=== PATIENT | female | born 1965 | race Caucasian/White ===

== ENCOUNTER 2016-10-25 21:18 | Observation (INO) | payer OTHER ==
[~2016-10-25] VITALS: Ht 165.1 cm; Wt 60.0 kg
[~2016-10-25 21:18] MED LIST: CLON1TAB PO; HYDR-3533 PO; IMIP25TA PO; METO50TA PO
[2016-10-25 21:20] VITALS: BP 146/87; PULSE 92; RESP 16; TEMP 98; O2SAT 97
[2016-10-25] MEDS ORDERED: ASPIRIN 325 MG TAB PO ONE (21:45)
--- NOTE | 2016-10-25 21:45 | PD ---
HPI Chief Complaint: Cardiac Complaint Time Seen by Provider: 21:30 Travel History International Travel<30 days: No Contact w/Intl Traveler<30days: No Traveled to known affect area: No History of Present Illness HPI 51-year-old female complains of chest pain. Patient states that she has intermittent chest pain for the past 5 years. Patient was seen by physician in the past for chest pain. Patient states that she has stress test done year ago and was normal. Patient has history of bradycardia. Patient was on digoxin in the past however that was stopped after she had bradycardia. Patient's on metoprolol, imipramine and clonazepam. Patient states that the pain is sharp stabbing pain localized to left chest. Patient states that the pain started as tightness in her left chest this evening. Patient denies any pain radiation. Patient denies palpitation nausea diaphoresis. Patient denies any coughing congestion fever chills. Patient states that she has tingling sensation on the left arm. Patient denies any history hypertension, diabetes, dyslipidemia. Patient is a smoker. Patient has family history of heart disease. PFSH Past Medical History Depression: Yes Heart Rhythm Problems: Yes (SVT) Cardiovascular Problems: Yes Diminished Hearing: No Herniated Disk: Yes (neck and lower back per pt. 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.) Immunizations Current: Yes Menopausal: No : 4 Para: 3 Miscarriage: 1 : 0 Ovarian Cysts: Yes Tubal Ligation: Yes Past Surgical History Section: No Cholecystectomy: Yes Gynecologic Surgery: Yes (oopherectomy, unsure of the side.) Social History Alcohol Use: No Tobacco Use: Yes Substance Use: No Allergies-Medications (Allergen,Severity, Reaction): Coded Allergies: No Known Allergies (Unverified , 10/25/16) Reported Meds & Prescriptions Reported Meds & Active Scripts Active Reported Imipramine HCL (Imipramine HCl) 25 Mg Tab 25 Mg PO TID Metoprolol Tartrate 50 Mg Tab 50 Mg PO DAILY Clonazepam 1 Mg Tab 1 Mg PO Q4-6H Review of Systems General / Constitutional: No: Fever Eyes: No: Visual changes HENT: No: Headaches Cardiovascular: Positive: Chest Pain or Discomfort Respiratory: No: Shortness of Breath Gastrointestinal: No: Abdominal Pain Genitourinary: No: Dysuria Musculoskeletal: No: Pain Skin: No Rash Neurologic: No: Weakness Psychiatric: No: Depression Endocrine: No: Polydipsia Hematologic/Lymphatic: No: Easy Bruising Physical Exam Narrative GENERAL: Well-nourished, well-developed patient. SKIN: Focused skin assessment warm/dry. HEAD: Normocephalic. EYES: No scleral icterus. No injection or drainage. NECK: Supple, trachea midline. No JVD or lymphadenopathy. CARDIOVASCULAR: Regular rate and rhythm without murmurs, gallops, or rubs. RESPIRATORY: Breath sounds equal bilaterally. No accessory muscle use. GASTROINTESTINAL: Abdomen soft, non-tender, nondistended. MUSCULOSKELETAL: No cyanosis, or edema. BACK: Nontender without obvious deformity. No CVA tenderness. Neurologic exam normal. Data Data Last Documented VS Vital Signs Date Time Temp Pulse Resp B/P Pulse Ox O2 Delivery O2 Flow Rate FiO2 10/25/16 21:50 18 100 10/25/16 21:50 90 10/25/16 21:20 98.0 146/87 Orders Electrocardiogram (10/25/16 21:37) Complete Blood Count With Diff (10/25/16 21:37) Comprehensive Metabolic Panel (10/25/16 21:37) Creatine Kinase (Cpk) (10/25/16 21:37) Troponin I (10/25/16 21:37) Prothrombin Time / Inr (Pt) (10/25/16 21:37) Act Partial Throm Time (Ptt) (10/25/16 21:37) Urinalysis - C+S If Indicated (10/25/16 21:37) D-Dimer (10/25/16 21:37) Chest, Single Ap (10/25/16 21:37) Iv Access Insert/Monitor (10/25/16 21:37) Ecg Monitoring (10/25/16 21:37) Oximetry (10/25/16 21:37) Aspirin (Aspirin) (10/25/16 21:45) Labs Laboratory Tests Test 10/25/16 10/25/16 21:46 21:57 White Blood Count 10.7 TH/MM3 Red Blood Count 4.95 MIL/MM3 Hemoglobin 14.1 GM/DL Hematocrit 42.0 % Mean Corpuscular Volume 84.8 FL Mean Corpuscular Hemoglobin 28.5 PG Mean Corpuscular Hemoglobin 33.6 % Concent Red Cell Distribution Width 13.6 % Platelet Count 282 TH/MM3 Mean Platelet Volume 8.3 FL Neutrophils (%) (Auto) 60.0 % Lymphocytes (%) (Auto) 30.3 % Monocytes (%) (Auto) 7.6 % Eosinophils (%) (Auto) 1.6 % Basophils (%) (Auto) 0.5 % Neutrophils # (Auto) 6.4 TH/MM3 Lymphocytes # (Auto) 3.2 TH/MM3 Monocytes # (Auto) 0.8 TH/MM3 Eosinophils # (Auto) 0.2 TH/MM3 Basophils # (Auto) 0.1 TH/MM3 CBC Comment DIFF FINAL Differential Comment Prothrombin Time 10.9 SEC Prothromb Time International 1.0 RATIO Ratio Activated Partial 29.1 SEC Thromboplast Time D-Dimer Quantitative (PE/DVT) 0.20 MG/L FEU Sodium Level 133 MEQ/L Potassium Level 3.8 MEQ/L Chloride Level 97 MEQ/L Carbon Dioxide Level 28.7 MEQ/L Anion Gap 7 MEQ/L Blood Urea Nitrogen 8 MG/DL Creatinine 0.96 MG/DL Estimat Glomerular Filtration 62 ML/MIN Rate Random Glucose 86 MG/DL Calcium Level 9.3 MG/DL Total Bilirubin 0.4 MG/DL Aspartate Amino Transf 18 U/L (AST/SGOT) Alanine Aminotransferase 30 U/L (ALT/SGPT) Alkaline Phosphatase 66 U/L Total Creatine Kinase 87 U/L Troponin I LESS THAN 0.02 NG/ML Total Protein 7.6 GM/DL Albumin 4.4 GM/DL Urine Color LIGHT-YELLOW Urine Turbidity CLEAR Urine pH 7.5 Urine Specific Kennan 1.003 Urine Protein NEG mg/dL Urine Glucose (UA) NEG mg/dL Urine Ketones NEG mg/dL Urine Occult Blood TRACE Urine Nitrite NEG Urine Bilirubin NEG Urine Urobilinogen LESS THAN 2.0 MG/DL Urine Leukocyte Esterase NEG Urine RBC 1 /hpf Urine WBC 1 /hpf Urine Squamous Epithelial <1 /hpf Cells Urine Bacteria FEW /hpf Microscopic Urinalysis Comment CULT NOT INDICATED MDM Medical Decision Making Medical Screen Exam Complete: Yes Emergency Medical Condition: Yes Interpretation(s) 23:37 PM. EKG shows sinus rhythm with incomplete right bundle-branch block. Nonspecific ST-T wave change. Last Impressions Chest X-Ray 10/25/16 [id number] Signed Impressions: Service Date/Time: Tuesday, October 25, 2016 21:56 - CONCLUSION: No evidence of acute cardiopulmonary disease. Gilbert Akhtar MD 23:37 PM. CBC within normal limit. Sodium 133. Cardiac enzymes are normal. UA is negative. Differential Diagnosis Differential diagnosis including angina, [place], PE, pneumothorax. Narrative Course 51-year-old female with recurrent left-sided chest pain. Aspirin 325 mg by mouth given. Patient will be admitted to the chest pain center Diagnosis Primary Impression: Chest pain Qualified Code: R07.9 - Chest pain, unspecified type Admitting Information Admitting Physician Requests: Observation Candido Johnson MD Oct 25, 2016 21:45
[2016-10-25 21:50] VITALS: RESP 18; O2SAT 100
[2016-10-25] MEDS ORDERED: CLON1TAB PO (21:54)
[2016-10-25] MEDS ORDERED: IMIP25TA PO (21:54)
[2016-10-25] MEDS ORDERED: METO50TA PO (21:54)
--- NOTE | 2016-10-25 22:02 | RADRPT ---
EXAM DATE/TIME: 10/25/2016 21:56 [facility] COMPARISON: No previous studies available for comparison. INDICATIONS : Chest pain and shortness of breath that started today. MEDICAL HISTORY : None. SURGICAL HISTORY : None. ENCOUNTER: Initial ACUITY: 1 day PAIN SCORE: 5/10 LOCATION: Bilateral chest FINDINGS: A single view of the chest demonstrates the lungs to be symmetrically aerated without evidence of mas s, infiltrate or effusion. The cardiomediastinal contours are unremarkable. Osseous structures are intact. CONCLUSION: No evidence of acute cardiopulmonary disease. Gilbert Akhtar MD on October 25, 2016 at 22:01 Board Certified Radiologist. This report was verified electronically.
[2016-10-25 22:03] LABS: AUTOMATED NEUTROPHIL # 6.4 TH/MM3 (1.8-7.7); BASOPHIL # 0.1 TH/MM3 (0-0.2); BASOPHIL % 0.5 % (0.0-2.0); EOSINOPHIL # 0.2 TH/MM3 (0-0.4); EOSINOPHIL % 1.6 % (0.0-4.0); HEMO FLAGS DIFF FINAL; LYMPH % 30.3 % (9.0-44.0); LYMPHOCYTE # 3.2 TH/MM3 (1.0-4.8); MEAN CELL VOLUME 84.8 FL (80.0-100.0); MEAN CORPUSCULAR HEMOGLOBIN 28.5 PG (27.0-34.0); MEAN CORPUSCULAR HGB CONC 33.6 % (32.0-36.0); MONO % 7.6 % (0.0-8.0); PLATELET COUNT 282 TH/MM3 (150-450); RED BLOOD COUNT 4.95 MIL/MM3 (4.00-5.30); RED CELL DISTRIBUTION WIDTH 13.6 % (11.6-17.2); WHITE BLOOD COUNT 10.7 TH/MM3 (4.0-11.0)
[2016-10-25 22:11] LABS: BACTERIA, URINE FEW /hpf; BLOOD, URINE TRACE (NEG); COMMENT (UR) CULT NOT INDICATED; CULTURE IF INDICATED CULT NOT INDICATED; GLUCOSE,URINE NEG (NEG); KETONE, URINE NEG (NEG); NITRITE,URINE NEG (NEG); PH, URINE 7.5 (5.0-8.5); SQUAMOUS EPITHELIAL CELL URINE <1 /hpf (0-5); URINE COLOR LIGHT-YELLOW (YELLW/STRAW)
[2016-10-25 22:14] LABS: APTT (PATIENT) 29.1 SEC (24.3-30.1); PROTHROMBIN TIME - PATIENT 10.9 SEC (9.8-11.6)
[2016-10-25 22:17] LABS: ANION GAP 7 MEQ/L (5-15); AST (GOT) 18 U/L (15-37); BICARBONATE 28.7 MEQ/L (21.0-32.0); BLOOD UREA NITROGEN 8 MG/DL (7-18); CHLORIDE 97 MEQ/L (98-107); GLOMERULAR FILTRATION RATE 62 ML/MIN (>89); POTASSIUM 3.8 MEQ/L (3.5-5.1); SODIUM (NA) 133 MEQ/L (136-145)
[2016-10-25 22:22] LABS: ALKALINE PHOSPHATASE 66 U/L (45-117); ALT (GPT) 30 U/L (10-53); TOTAL BILIRUBIN ADULT 0.4 MG/DL (0.2-1.0)
[2016-10-25 22:24] LABS: CREATINE KINASE 87 U/L (26-192)
[2016-10-25] MEDS ORDERED: ONDANSETRON HCL 4 MG/2 ML VIAL IV PRN (23:45)
[2016-10-25] MEDS ORDERED: NITROGLYCERIN 0.4 MG SL 25 TABS/BTL SL PRN (23:45)
[2016-10-25] MEDS ORDERED: ACETAMINOPHEN 500 MG CPLT PO PRN (23:45)
[2016-10-26 00:25] VITALS: O2SAT 98
--- NOTE | 2016-10-26 07:44 | EKG ---
Date Performed: 10/25/2016 Time Performed: 21:35:41 PTAGE: 51 years EKG: Sinus rhythm INCOMPLETE RIGHT BUNDLE BRANCH BLOCK BORDERLINE ECG INTERPRETATION BASED ON A DEFAULT AGE OF 41 YEAR S NO SIGNIFICANT CHANGE FROM PRIOR ELECTROCARDIOGRAM. PREVIOUS TRACING : 09/20/2014 00.23 DOCTOR: Haile Dennis Interpretating Date/Time 10/26/2016 07:42:56
== END 2016-10-26 00:33 | disposition home or self-care (01) ==
LOC: NEPE 21:18 → NEDA 23:45
PROVIDERS: ADMIT Internal Medicine Cardiovascular Disease; ATTEND Internal Medicine Cardiovascular Disease
DX: R07.89 Other chest pain (principal); F32.9 Major depressive disorder, single episode, unspecified; F17.200 Nicotine dependence, unspecified, uncomplicated; Z82.49 Family history of ischemic heart disease and other diseases of the circulatory system
CPT/HCPCS: 71010; 80053; 81001; 82550; 84484; 85025; 85379; 85610; 85730; 93005; 99285; G0378